=== PATIENT | female | born 1980 ===

== ENCOUNTER 2018-05-27 10:09 | Outpatient (CLI) | payer OTHER | END 2018-05-27 10:10 | disposition home or self-care (01) | LOC: C.LAB 10:09 | DX: Z34.80 Encounter for supervision of other normal pregnancy, unspecified trimester (principal) ==

== ENCOUNTER 2018-06-27 09:19 | Outpatient (CLI) | payer OTHER | END 2018-06-27 09:20 | disposition home or self-care (01) | LOC: C.LAB 09:19 ==

== ENCOUNTER 2018-08-16 11:52 | Outpatient (CLI) | payer OTHER | END 2018-08-16 11:53 | disposition home or self-care (01) | LOC: C.LAB 11:52 | DX: Z34.82 Encounter for supervision of other normal pregnancy, second trimester (principal) ==

== ENCOUNTER → 2018-09-17 | Outpatient (CLI) | payer OTHER | LOC: C.LAB 09:56 | DX: Z34.83 Encounter for supervision of other normal pregnancy, third trimester (principal) ==